=== PATIENT | female | born 1975 | race Caucasian/White ===

== ENCOUNTER → 2016-06-29 | Outpatient (CLI) | payer BC | END | disposition home or self-care (01) | LOC: RAD.S 08:40 | DX: Z12.31 Encounter for screening mammogram for malignant neoplasm of breast (principal); N63 Unspecified lump in breast ==

== ENCOUNTER → 2016-07-06 | Outpatient (CLI) | payer BC | END | disposition home or self-care (01) | LOC: RAD.S 07-02 23:00 | DX: R92.8 Other abnormal and inconclusive findings on diagnostic imaging of breast (principal) ==